=== PATIENT | female | born 1995 | race Caucasian/White ===

== ENCOUNTER 2017-02-05 06:55 | Day surgery (SDC) | payer OTHER ==
[~2017-02-05] VITALS: Ht 160 cm; Wt 46.8 kg
[2017-02-05 07:17] VITALS: Ht 160 cm; Wt 46.8 kg
[2017-02-05] MEDS ORDERED: PROPOFOL 40 ML ONE (08:09)
[2017-02-05] MEDS ORDERED: LIDOCAINE 2% (SDV) 5 ML INJ ONE (08:09)
[2017-02-05 08:16] VITALS: BP 96/53; PULSE 96; RESP 26
--- NOTE | 2017-02-05 08:39 | OPPN ---
Date/Time of Note Date/Time of Note DATE: 02/05/17 TIME: 08:36 Proc Note GI Procedure Date 02/05/17 Indication: diagnostic Pre-procedure Diagnosis rectal bleeding Post-procedure Diagnosis mild hemorrhoids Procedure Performed: Colonoscopy Surgeon see signature line [place] none Anesthesia Type: MAC Tourniquet Time none EBL none Transfusion required none Biopsy 1: colon and T I bx Grafts/Implants none Tubes/Drains none Complication(s) none Disposition: home Procedure Description under mac colonoscopy performed mild hemorrhoids seen colon bx ti bx done ANNA QUESADA MD Feb 05, 2017 08:39
[2017-02-05 09:05] VITALS: BP 104/66; PULSE 82; RESP 17
--- NOTE | 2017-02-05 12:47 | GILP ---
DATE OF PROCEDURE: NAME OF PROCEDURE: Colonoscopy up to terminal ileum. PREOPERATIVE DIAGNOSIS: Patient presenting with history of rectal bleeding, rule out colorectal gonzález plasm, colitis, hemorrhoids, etcetera. POSTOPERATIVE DIAGNOSES: Normal terminal ileum, normal colon except mild degree of external hemorrh oids were noted. DESCRIPTION OF PROCEDURE: After informed written consent was obtained, the patient was asked to lie on the left lateral side. Intravenous anesthesia was given by anesthesiologist, Dr. Hinojosa. When the patient became somnolent, the Olympus video colonoscope was introduced into the rectum and scope was advanced all the way to the cecum. Entire colon appeared perfectly normal. Terminal ileum was examined, which appeared normal. Biopsies were obtained from the terminal ileum to rule out termin al ileitis. Random colon biopsies were done to rule out microscopic colitis. Scope at this time wa s withdrawn. Retroflexion was performed. No internal hemorrhoids noted. On the way out, a mild de gree of external hemorrhoids were noted and the procedure was terminated. PLAN: . Dictated By: ANNA GROSS/WESTON Conf#: [id number] DID#: [id number] CC: ALEXANDRA SHEPARD MD;*EndCC*
== END 2017-02-05 10:58 | disposition home or self-care (01) ==
LOC: GIL 06:55
PROVIDERS: ATTEND Internal Medicine Gastroenterology
DX: K92.1 Melena (principal); K64.8 Other hemorrhoids
CPT/HCPCS: 45378; 84703; 88305; Z7610